=== PATIENT | female | born 2000 | race Caucasian/White ===

== ENCOUNTER 2022-11-01 22:04 | Emergency (ER) | payer OTHER ==
[~2022-11-01] VITALS: Ht 172.7 cm; Wt 62.7 kg
[2022-11-01] MEDS ORDERED: DexAMETHasone SOD PHOS 10MG/1ML VIAL INJ IV ONE (23:15)
[2022-11-01] MEDS ORDERED: FAMOTIDINE (10MG/ML) 2ML VL IV ONE (23:15)
[2022-11-02] MEDS ORDERED: METH4PAK PO (01:07)
[2022-11-02 01:33] VITALS: BP 117/78
== END 2022-11-02 01:33 | disposition home or self-care (01) ==
LOC: ER 22:04
DX: L23.9 Allergic contact dermatitis, unspecified cause (principal); E11.9 Type 2 diabetes mellitus without complications; Z88.1 Allergy status to other antibiotic agents; Z88.0 Allergy status to penicillin
CPT/HCPCS: 96374; 96375; 99284; J1100; J3490